=== PATIENT | female | born 1945 | race Caucasian/White ===

== ENCOUNTER → 2017-06-01 | Outpatient (CLI) | payer OTHER | LOC: US 12:47 | PROVIDERS: ATTEND Family Medicine | DX: R06.02 Shortness of breath (principal); R42 Dizziness and giddiness; R01.1 Cardiac murmur, unspecified; I51.7 Cardiomegaly; I35.1 Nonrheumatic aortic (valve) insufficiency | CPT/HCPCS: 93306 ==